=== PATIENT | male | born 1960 | race Caucasian/White ===

== ENCOUNTER → 2017-06-23 | Outpatient (CLI) | payer OTHER ==
--- NOTE | 2017-06-23 15:20 | DIAGNOSTIC IMAGING REPORT ---
CHEST 2 VIEWS ROUTINE CLINICAL HISTORY: R05 Productive [id number] dyspnea COMPARISON STUDY: No previous studies for comparison. FINDINGS: Mild cardiomegaly. Slight blunting left lateral costophrenic angle. Lungs otherwise appear clear. The clavicle subtle infiltrate left retrocardiac region. IMPRESSION: 1. Small patchy parenchymal infiltrate left lower lobe. 2. Slight blunting left lateral costophrenic angle. The above report was generated using voice recognition software. It may contain grammatical, syntax or spelling errors. Electronically signed by: Armani Ventura M.D. 06/23/2017 3:18 PM Dictated Date/Time: 06/23/2017 3:17 PM
== END | disposition home or self-care (01) ==
LOC: C.RADBC 15:00
PROVIDERS: ATTEND Nurse Practitioner Adult Health
DX: R05 Cough (principal)

== ENCOUNTER 2020-07-17 06:59 | Observation (INO) ==
--- NOTE | 2020-07-11 10:00 | Anesthesiology Consultation ---
Date of Service July 11, 2020 Assessment & Plan (1) Encounter for pre-operative examination: Chart Review Chart Review: Acceptable Risk for Surgery (pending preop Covid testing results ) and Patient NOT seen in Pre Admission Testing Per nursing assessment 07/07/2020, patient resides in [facility]. No recent travel. Uses PPE. No known Covid positive contacts or Covid related symptoms. No known Covid infection in the past 90 days. Covid test 07/11/2020 = results pending. History Surgery Operation Date: 07/17/20 08:30 Proposed Procedures p Left Open Inguinal Hernia Repair - Ifeanyi Crane MD, FACS Height/Weight Height: 6 ft 2 in Weight: 105.687 kg Allergies Allergy/AdvReac Type Severity Reaction Status Date / Time No Known Drug Allergies Allergy Unknown . Verified 07/07/20 08:53 bee Allergy Intermediate Swelling Uncoded 07/07/20 08:53 of Lip/Tongue/Throat Medications Home Medications Medication Instructions Recorded Confirmed Last Taken levothyroxine [Synthroid] 25 mcg PO QAM 07/07/20 Unknown Past Medical History Medical History Allergic rhinitis BPH (benign prostatic hyperplasia) Dyslipidemia Hypothyroidism Left inguinal hernia plan to surgery 07/17/2020 Sensorineural hearing loss (SNHL) Past Family History Family History Sister Leukemia Son Tourette syndrome Mother Healthy adult Denies family history of Prostate cancer Colorectal cancer Past Surgical History Surgical History H/O colonoscopy History of tonsillectomy Social History Smoking Status: Never smoker Do You Dip or Chew Tobacco: No Hx Alcohol Use: Yes Alcohol type: beer alcohol intake frequency: 0-2 drinks per day Hx Substance Use: No substance use type: does not use Testing Laboratory Results Laboratory Tests 04/28/20 07/11/20 07/11/20 00:00 07:40 07:40 WBC 6.35 Hgb 16.3 Hct 48.4 Plt Count 302 Sodium 142 Potassium 4.1 Chloride 106 Carbon Dioxide 29 BUN 14 Creatinine 1.08 Glucose 76 TSH 3.53 Electrocardiogram Date: 03/02/21 Findings: + NSR @ (60 bpm) Normal EKG. Echocardiogram Date: 06/08/19 EF: 55-60% LV Function: normal RWMA: + none Mild TR. Small pericardial effusion (<1 cm). There are no echocardiographic indications of cardiac tamponade. No pleural effusion.
--- NOTE | 2020-07-17 05:36 | History & Physical Bridge Note ---
Date of Service July 17, 2020 History & Physical Bridge Note I have examined the patient, reviewed the History & Physical and in the interval since the performance of the History & Physical I have noted the following changes of clinical significance: no changes noted
[~2020-07-17 06:59] MED LIST: LR 15ML/HR IV SCH; ceFAZolin 2000MG 2,000 MG/15 ML SYR IV SCH
[2020-07-17] MEDS ORDERED: BUPIVACAINE 0.5 % 5 MG/1 ML MPF 30ML VIAL ONE (08:14)
[2020-07-17] MEDS ORDERED: fentaNYL citrate 100 MCG/2 ML VIAL ONE ×2 (08:21)
[2020-07-17] MEDS ORDERED: MIDAZOLAM HCL 1 MG/ML 2ML VIAL ONE (08:21)
[2020-07-17] MEDS ORDERED: ATROPINE SULFATE 0.1 MG/ML 10ML SYR IV PRN (08:41)
[2020-07-17] MEDS ORDERED: ePHEDrine sulfate 50 MG/ML AMP IV PRN (08:41)
[2020-07-17] MEDS ORDERED: HYDROmorphone INJ 2 MG/ML SYR/VIAL IV PRN (08:41)
[2020-07-17] MEDS ORDERED: ONDANSETRON INJ 2 MG/ML 2 ML VIAL IV PRN ×2 (08:41→11:17)
[2020-07-17] MEDS ORDERED: DEXAMETHASONE SOD INJ 4 MG/ML VIAL ONE (08:57)
[2020-07-17] MEDS ORDERED: ONDANSETRON INJ 2 MG/ML 2 ML VIAL ONE (08:57)
[2020-07-17] MEDS ORDERED: LIDOCAINE HCL 2% 2 ML VIAL/AMP(20MG/ML) INFIL ONE (09:05)
[2020-07-17] MEDS ORDERED: ROCURONIUM BROMIDE 10 MG/ML 5 ML VIAL IV ONE (09:05)
[2020-07-17] MEDS ORDERED: PROPOFOL IV EMULSION 10 MG/ML 20 ML VIAL IV ONE (09:05)
[2020-07-17] MEDS ORDERED: GLYCOPYRROLATE 0.2 MG/ML VIAL ONE ×2 (09:06→10:17)
[2020-07-17] MEDS ORDERED: NEOSTIGMINE METHYLSULFATE 5 MG/5 ML SYR ONE (09:06)
[2020-07-17] MEDS ORDERED: ACETAMINOPHEN 1000 MG/100 ML IV IV ONE (09:29)
--- NOTE | 2020-07-17 10:19 | Post Operative Brief Note ---
PG Immediate Post Op with CF Date of Surgery July 17, 2020 Pre & Post Diagnosis Operation Date: 07/17/20 08:30 Pre-Op Diagnosis: Left Inguinal Hernia Post-Op Diagnosis: Left Inguinal Hernia, very large direct hernia with colon, large lipoma I identified the patient and participated in the time-out.: Yes Procedure Operation Date: 07/17/20 08:30 Actual Procedures p Left Open Inguinal Hernia Repair(Left) - Ifeanyi Crane MD, FACS Surgeon Ifeanyi Crane MD, FACS Medical Technologist Chemistry Bogdan Gonsales Estimated Blood Loss 20 Findings Consistent with Post-Op Diagnosis Specimens Specimen Description: A: Lipoma Drains Colby-Jacobson Drain
[2020-07-17] MEDS ORDERED: ACETAMINOPHEN 1,000 MG/100 ML VIAL IV ONE (10:20)
[2020-07-17] MEDS: fentaNYL citrate 100 MCG/2 ML VIAL IV PRN ×2 (10:41→10:46)
[2020-07-17] MEDS ORDERED: PROMETHAZINE HCL 25 MG in SODIUM CHLORIDE 0.9% 50 ML IV PRN (11:17)
[2020-07-17] MEDS ORDERED: PROMETHAZINE HCL 12.5 MG in SODIUM CHLORIDE 0.9% 50 ML IV PRN (11:17)
[2020-07-17] MEDS ORDERED: ACETAMINOPHEN 325 MG TAB PO PRN (11:17)
[2020-07-17] MEDS ORDERED: HYDROCODONE/ACETAMOPHEN 5/325MG TAB PO PRN ×2 (11:17)
[2020-07-17] MEDS ORDERED: IBUPROFEN 600 MG TAB PO PRN (11:17)
[2020-07-17] MEDS ORDERED: SODIUM CHLORIDE 0.9% 1000ML 1,000 ML IV SCH (11:45)
--- NOTE | 2020-07-17 11:49 | Anesthesiology Progress Note ---
Date of Service July 17, 2020 Anesthesia Post Procedure Vital Signs Vital Signs: Temp Pulse Pulse Pulse Resp BP Pulse Ox 07/17/20 11:44 56 L 16 128/80 100 07/17/20 11:10 36.5 C 62 17 100 07/17/20 11:00 36.5 C 59 L 13 122/79 100 07/17/20 10:50 59 L 12 120/71 100 07/17/20 10:40 66 17 125/69 100 07/17/20 10:31 36 C L 74 17 138/89 99 07/17/20 07:52 36.7 C 75 18 139/84 98 Pain Intensity Left Abdomen: Pain Intensity: 4 Transfer of Care Handoff Completed per policy Notes Mental Status: alert / awake / arousable and participated in evaluation Patient Amnestic to Procedure: Yes Nausea / Vomiting: adequately controlled Pain: adequately controlled Airway Patency, RR, SpO2: stable & adequate BP & HR: stable & adequate Hydration State: stable & adequate Anesthetic Complications: no major complications apparent
--- NOTE | 2020-07-17 12:32 | Operative Report (OR) ---
DATE OF OPERATION: 07/17/2020 NAME OF OPERATION: Open left inguinal hernia repair. PREOPERATIVE DIAGNOSIS: Left inguinal hernia. POSTOPERATIVE DIAGNOSES: Left inguinal hernia with very large direct defect and lipoma, defect containing colon. STAFF SURGEON: Ifeanyi Crane MD. DERRICK ENGINEER: Benjamin Gonsales PA-C. ANESTHESIA: General. DESCRIPTION OF PROCEDURE: The patient was brought in the operating room and placed on the operating table in supine position. His lower abdomen was prepped and draped in usual fashion. The left side was approached. The patient had a very large inguinal hernia extending into the scrotum. Incision was made in the left lower quadrant parallel to the inguinal ligament, carrying dissection down identifying the external oblique fibers. There was a large amount of tissue coming through the external ring. External oblique fibers were incised along their length to the external ring, mobilizing the cord structures. I did identify the cord structures and the hernia appeared to be medial to the epigastric vessels, indicating direct hernia. The sac was opened. It contained colon. This was reduced. There was also significant amount of retroperitoneal adipose tissue. Part of the sac was excised and then it was closed using 0 chromic suture. The patient also had a large lipoma associated with this area, which was excised. With some difficulty, all the tissue was dissected away from the cord structures and then reduced. A relaxing incision was made in the transversalis fascia superiorly and then using 0 silk, the medial portion of the tissue was reapproximated to the inguinal ligament and then a large mesh plug placed into the direct defect, secured to surrounding tissue using 0 silk suture. Then a large mesh patch placed into the floor of the canal around the cord structures, secured using 2-0 Ethibond suture. The site was irrigated with antibiotic solution. External oblique fibers were closed over the mesh around the cord structures and then the site anesthetized using 0.5% plain Marcaine. A 15 round Colby-Jacobson drain placed down into the wound and into the scrotum, secured using 3-0 nylon suture. Subcutaneous tissue reapproximated using 2-0 plain suture and then the skin reapproximated using 4-0 nylon and Steri-Strips. My hygiene assistant helped with prepping, draping, repair of the hernia and closure of the wound. The patient was transferred to recovery room in stable condition. I attest to the content of the Intraoperative Record and any orders documented therein. Any exception s are noted below.
[2020-07-17] MEDS: MoRPHine SULFATE 2 MG/ML CARP IV PRN ×2 (13:19→20:05)
[2020-07-17] MEDS: ceFAZolin 1000MG 1,000 MG/7.5 ML SYR IV SCH (16:44)
[2020-07-17] MEDS: MAGNESIUM HYDROXIDE SUSP 30 ML UDC PO SCH (20:07)
[2020-07-17] MEDS: DOCUSATE SODIUM/SENNA 50/8.6MG TAB PO SCH (20:08)
[2020-07-18] MEDS: ceFAZolin 1000MG 1,000 MG/7.5 ML SYR IV SCH ×2 (00:43→08:35)
[2020-07-18] MEDS ORDERED: LEVOTHYROXINE SODIUM 25 MCG TABLET PO SCH (06:30)
[2020-07-18] MEDS: MAGNESIUM HYDROXIDE SUSP 30 ML UDC PO SCH (08:35)
[2020-07-18] MEDS: DOCUSATE SODIUM/SENNA 50/8.6MG TAB PO SCH (08:36)
--- NOTE | 2020-07-19 16:32 | Discharge Summary (DS) ---
PRINCIPAL DIAGNOSIS: Very large left inguinal hernia. PROCEDURES: The patient underwent open left inguinal hernia repair. HISTORY OF PRESENT ILLNESS: The patient is a 59-year-old male with known left inguinal hernia which is enlarging down to the scrotum. HOSPITAL COURSE: The patient was brought in the hospital on 07/17/2020 where he underwent open left inguinal hernia repair, which showed an extremely large hernia with the colon down into the scrotum. The patient tolerated the procedure well. A drain had been placed. He was monitored in the hospital overnight, did well and was able to void and was felt stable for discharge on 07/18/2020 to be followed in the surgical clinic within 3-4 days for drain removal.
== END 2020-07-18 12:14 | disposition home or self-care (01) ==
LOC: ASU 06:59 → 3W 06:59